=== PATIENT | male | born 1995 ===

== ENCOUNTER → 2023-02-27 | Outpatient (CLI) | payer OTHER ==
--- NOTE | 2023-03-07 12:47 | CT ---
EXAMINATION TYPE: CT abdomen pelvis w con CT DLP: 913 mGycm, Automated exposure control for dose reduction was used. DATE OF EXAM: 02/27/2023 3:32 PM COMPARISON: None. CLINICAL INDICATION:Male, 28 years old with history of R10.2 PELVIC AND PERINEAL PAIN; pelvic pain po st inguinal hernia repair TECHNIQUE: Axial CT of the abdomen and pelvis. Sagittal and coronal reformats were created on a [employer] workstation. Contrast used:100 mL of Isovue 300 with IV Contrast, (none if empty) Oral contrast used: without Oral Contrast (none if empty) FINDINGS: LOWER CHEST: Clear lung bases. Normal heart size. ABDOMEN LIVER: Unremarkable GALLBLADDER AND BILE DUCTS: Unremarkable gallbladder. No biliary ductal dilatation. PANCREAS: Unremarkable. SPLEEN: Unremarkable. ADRENAL GLANDS: Unremarkable. KIDNEYS AND URETERS: Kidneys enhance symmetrically. No evidence of hydronephrosis or visible renal ca lculus. The ureters are unremarkable. A 7 mm cyst in the superior pole left kidney PELVIS BLADDER: Is incompletely filled however the wall appears generally mildly thickened even for the degr ee of distention. REPRODUCTIVE: Unremarkable prostate about 3.5 cm transverse. ABDOMEN & PELVIS STOMACH AND BOWEL: Stomach and small bowel are nondistended, no evidence of obstruction. Appendix i s seen on axial image 46, appears within normal limits. Moderate amount of stool throughout the colo n without clear evidence of an acute abnormality. PERITONEUM/RETROPERITONEUM: No evidence of pneumoperitoneum or free fluid. VASCULATURE: Aorta and major branches are grossly unremarkable. No AAA. Portal veins are enhancing. Splenic vein is patent. LYMPH NODES: No gross evidence for lymphadenopathy. SOFT TISSUE/ABDOMINAL WALL: No appreciable recurrent hernia. MUSCULOSKELETAL: No acute osseous abnormalities. IMPRESSION: Thickened appearance of the urinary bladder wall, could be due to incomplete distention versus cystit is. Please correlate clinically.
== END | disposition home or self-care (01) ==
LOC: RADCTMAIN 14:55
PROVIDERS: ATTEND Surgery
DX: N32.89 Other specified disorders of bladder (principal); R10.2 Pelvic and perineal pain
CPT/HCPCS: 74177; Q9967